=== PATIENT | female | born 1925 | race Caucasian/White ===

== ENCOUNTER 2016-05-09 07:30 | Day surgery (SDC) | payer MEDICARE, OTHER ==
[~2016-05-09] VITALS: Ht 165.1 cm; Wt 101.4 kg
--- NOTE | ~2016-05-09 | OR ---
PATIENT'S NAME: [facility] AGE: 89 Y [address] ROOM: [place] [id number] [place] [facility] [place]: 05/09/2016 OR/Procedure Report DISCHARGE DATE: 05/09/2016 FAMILY PHYSICIAN: Eric Olson MD ATTENDING PHYSICIAN: Chato Quintanilla SURGEON: Chato Quintanilla MD MEDICAL RECRUITER: None. DATE OF PROCEDURE: 05/09/2016 PREOPERATIVE DIAGNOSES: 1. 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 2. Left cheek lesion of undetermined pathology. POSTOPERATIVE DIAGNOSES: 1. 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 2. Left cheek lesion of undetermined pathology. PROCEDURE: 1. Wide local excision of the right cheondoism squamous cell carcinoma 3.5 x 2.0 cm. 2. Transposition flap reconstruction in the form of a rhomboid flap, 4.5 x 5.5 cm. 3. Wide local excision of left cheek lesion 2.0 x 0.8 cm with primary closure. ANESTHESIA: Local with MAC. COMPLICATIONS: None. BLOOD LOSS: 10 mL. FINDINGS: Negative frozen section margins on the right cheondoism. SPECIMENS: Right cheondoism and left cheek. INDICATION: The patient is an 89-year-old female with a biopsy-proven right cheondoism squamous cell carcinoma with positive peripheral margins. She was planned for wide local excision with reconstruction. We discussed the risks, benefits, alternatives. She provided informed consent. In the preoperative area, she also indicated a new area of concern to her. A small pair of lesions just to her left nasal ala. These appeared clinically consistent with seborrheic keratosis; however, these were itching and scaling and bothering her. We discussed excision of these areas. DESCRIPTION OF PROCEDURE: The patient was brought from the preoperative area [facility] AGE: 89 Y [address] ROOM: [place] [id number] [place] [facility] [place]: 05/09/2016 OR/Procedure Report DISCHARGE DATE: 05/09/2016 FAMILY PHYSICIAN: Eric Olson MD ATTENDING PHYSICIAN: Chato Quintanilla to the operative suite, placed on table in supine position. All pressure points were padded. Time-out was performed correctly identifying the patient and procedure. MAC anesthesia was initiated. The local was then infused into both areas of planned excision with 1% lidocaine with epinephrine and 0.5% Marcaine with epinephrine in a 1:1 ratio. 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 She was prepped and draped. Thereafter, an incision was made with a 3 to 4 mm margin around the right cheondoism lesion, oriented and sent for frozen section margin, which did return as negative. Spot hemostasis was achieved with needlepoint cautery. The left cheek lesion was then excised in an elliptical fashion just lateral to the melolabial crease. This was then closed primarily without difficulty and sent for permanent specimen. Returning to the right cheondoism, rhomboid flap was signed, inferior laterally based, and this was rotated into position after thorough undermining. This was sutured in place with 4-0 Monocryl sutures deep and 5-0 fast gut suture for the skin. The patient tolerated this well. There was minimal duskiness to the flap at the end of the case. The areas were cleansed. Ointment applied to both. The patient returned from MAC anesthesia to full awakening and transferred to the recovery room in stable condition. MD KATARINA BRITO/modl /[id number] d: 05/09/16 1605 t: 05/23/16 1015, OPERATIVE SUMMARY
[~2016-05-09 07:30] MED LIST: ALBUTEROL2.5 MG/0.5 INH; ALDACTONE25 MG; ALDACTONE25 MG PO; ANTIVERT12.5 MG PO; ASPIRIN325 MG PO; ATROVENT I0.5 MG/2.5 INH; AZILECT1 MG PO; BACTRIM DS1 TAB; BENADRYL25 MG PO; BIOTENE)(DRY MO16 OZ PO; CALCIUM 500 +1 EACH PO; CERAVE453 GM TOP; DEMADEX20 M1 PO; DULCOLAX10 MG R; ERYTHROMYCIN500 M1 PO; EUCERIN ORIGIN500 ML TOP; FEOSOL325 MG PO; FLOMAX0.4 MG PO; GLUCOPHAGE1000 MG PO; GLUCOPHAGE500 MG PO; GLUCOSE4 GM PO; INDERAL10 MG; INDERAL10 MG PO; KLONOPIN1 M1 PO; KLOR-CON M2020 MEQ PO; LANTUS (IN100 UNIT/M SUB-Q; LANTUS100 UNIT/1 SUB-Q; LEVAQUIN250 MG PO; LEVOTHROID (S125 MCG PO; LIDEX 0.05% CRE30 GM TOP; MAALOX LIQ UNIT30 ML PO; MAGOX 400400 MG PO; MILK OF MA400 MG/5 M PO; MIRALAX17 GM PO; MULTI VITAMIN1 EACH PO; MYCOSTATIN(NYST15 GM TOP; NIFEREX-150) (150 MG PO; NORVASC10 MG PO; NOVOLOG100 UNIT/1 SUB-Q; NOVOLOG100 UNIT/M SUB-Q; OSCIMIN SR0.375 MG PO; OXYGEN M-15 NOSE; PAIN RELIEF650 MG PO; PAIN RELIEVER650 MG PO; POTASSIUM CHLO20 ME1; PREMARIN VAG30 GM VAG; PRILOSEC40 MG PO; PROAMATINE5 MG; PROAMATINE5 MG PO; REFRESH CLASSI1 EACH OPHTH; ROBITUSSIN DM U10 ML PO; ROBITUSSIN DM120 ML PO; ROLAIDS CHEWAB1 EACH PO; SENOKOT8.6 MG PO; SINEMET 25-1001 EACH PO; TEARS NATURALE30 ML OPHTH; TRIAMCINOLONE 015 GM TOP; TRIMETHOPRIM100 MG PO; TYLENOL PM EX-1 EACH PO; TYLENOL325 MG PO; ULTRAM50 MG PO; VANCOMYCIN1 G1 IV; ZOFRAN4 MG PO; ZYRTEC10 MG PO; [UNRECOGNIZED DRUG - OTHER] PO; [UNRECOGNIZED DRUG - OTHER] TOP; [UNRECOGNIZED DRUG - OTHER] TOP
[2016-05-09] MEDS ORDERED: DUONEB INH (08:06)
[2016-05-09] MEDS ORDERED: BACITRACIN1 PKT TOP (11:06)
== END 2016-05-09 12:55 | disposition disaster alternative care site (69) ==
LOC: GSDC 07:30
PROC: 0HX1XZZ Transfer Face Skin, External Approach (ICD-10-PCS; principal; 2016-05-09)
PROC: 0HB1XZZ Excision of Face Skin, External Approach (ICD-10-PCS; 2016-05-09)
PROC: 0HB1XZZ Excision of Face Skin, External Approach (ICD-10-PCS; 2016-05-09)
DX: D04.39 Carcinoma in situ of skin of other parts of face (principal); L82.1 Other seborrheic keratosis; Z87.891 Personal history of nicotine dependence; I10 Essential (primary) hypertension; E11.9 Type 2 diabetes mellitus without complications; E03.9 Hypothyroidism, unspecified; E78.5 Hyperlipidemia, unspecified; K21.9 Gastro-esophageal reflux disease without esophagitis; G20 Parkinson's disease; Z88.0 Allergy status to penicillin; Z88.1 Allergy status to other antibiotic agents; Z88.8 Allergy status to other drugs, medicaments and biological substances; Z90.49 Acquired absence of other specified parts of digestive tract; Z90.710 Acquired absence of both cervix and uterus; Z79.899 Other long term (current) drug therapy; Z98.890 Other specified postprocedural states
CPT/HCPCS: J2001; J3010; J7030